=== PATIENT | female | born 1985 | race Caucasian/White ===

== ENCOUNTER → 2016-07-07 | Outpatient (CLI) | payer OTHER ==
--- NOTE | 2016-07-07 13:32 | MAMMOGRAPHY REPORT ---
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 She did not unde rgo biopsy of the mass. The patient notes no noticeable change clinically in the size of the lump. She reports a possible other lump in the right lower breast. COMPARISON: Comparison is made to exam dated: 03/28/2012 ultrasound. TECHNIQUE: Real-time targeted ultrasound of the right breast was performed. FINDINGS: Real-time, high-resolution targeted ultrasound was performed of the area of the previousl y seen mass. In the right breast at 11:30, 2 cm from the nipple, there is an oval hypoechoic circum scribed parallel mass which measures 1.3 x 1.5 x 0.7 cm. This is stable in size and appearance comp ared to the 2012 exam, where the mass measured 1.3 x 1.6 x 0.8 cm. Given the benign morphology and long-term stability, the mass is benign and likely represents a fibroadenoma. Targeted ultrasound was also performed of the area of the possible lump pointed out by the patient, centered in the right breast at 5:00 approximately 4 cm from the nipple. Sonographically normal tis steven is seen in this region, without evidence of a mass or other suspicious sonographic abnormality. IMPRESSION: ACR BI-RADS CATEGORY 2: BENIGN 1. Stable size of the 1.5 cm hypoechoic mass in the right breast at 11:30, stable dating back to at least the 03/28/2012 exam. Given the benign morphology and long-term stability, the mass is conside red benign and likely represents a fibroadenoma. Recommend clinical follow-up. 2. No suspicious sonographic abnormality at the site of the possible lump in the right breast at ap proximately 5:00 pointed out by the patient. Recommend clinical follow-up. There is no sonographic evidence of malignancy. The patient was verbally notified of the results. Kymberly Mayberry M.D. /:07/07/2016 09:05:45 Bureau Chief: Kymberly Mayberry MD, [facility] letter sent: Normal 1/2 BI-RADS Code: ACR BI-RADS Category 2: Benign
== END | disposition home or self-care (01) ==
LOC: C.MAMM 08:43
PROVIDERS: ATTEND Nurse Practitioner Adult Health
DX: N63 Unspecified lump in breast (principal)

== ENCOUNTER 2021-11-08 06:39 | Inpatient (IN) ==
[2021-11-08] MEDS ORDERED: OXYTOCIN 30 UNITS/500 ML BAG IV PRN ×2 (08:11)
[2021-11-08] MEDS ORDERED: ceFAZolin 2000MG 2,000 MG/15 ML SYR IV STA (08:23)
[2021-11-08] MEDS ORDERED: miSOPROStoL 25 MCG TAB PO ONE (08:52)
[2021-11-08] MEDS: LACTATED RINGER'S 1,000 ML IV PRN ×3 (08:53→20:06)
[2021-11-08 08:55] LABS: Hematocrit (blood only) 30.1 % (34.1-44.9); Hemoglobin 10.3 g/dl (12.0-16.0); Mean Corpuscular Hemoglobin 32.1 pg (25.0-34.0); Mean Corpuscular Hgb Conc 34.2 g/dL (32.0-36.0); Mean Corpuscular Volume 93.8 fL (80.0-100.0); Mean Platelet Volume 11.9 fL (9.4-12.3); Platelet Count 194 K/uL (130-400); RDW Coefficient of Variation 14.1 % (11.5-14.5); Red Blood Count 3.21 M/uL (3.93-5.22); White Blood Count 11.24 K/ul (4.8-10.8)
--- NOTE | 2021-11-08 08:55 | Labor Progress Brief Note ---
Date of Service November 08, 2021 Subjective Review of Systems All systems reviewed & are unremarkable except as noted in HPI & below Assessment & Plan (1) PROM (premature rupture of membranes): Plan: Prom at 3:15am today, onset of irregular nonpainful contractions since but no active labor. Cervix 1cm/50/-2. status reassuring. Discussed indication to induce labor and possible methods. Will start with PO Cytotec, and plan to progress to pitocin after Whitney score adequate. Order for pitocin in place to allow pharmacy profiling but it is not started until we reach the appopriate point in labor. (2) GBS (group B Streptococcus carrier), +RV culture, currently : Plan: PCN/Ancef allergies, and culture GBS+ with multiple drug resistance, hence Vancomycin ordered. (3) Close exposure to COVID-19 virus: Plan: Patient's had COVID with symptoms starting 10/25, home test positive 10/26 and PCR+ 10/27. He has recovered and is free of symptoms, plus he from her physically through his illness, and she tests negative here today on arrival - though they do both arrive together, wearing surgical masks. Discussed scenario with infectious disease control staff who advise that Marian and her can be managed as COVID negative at this time, although if Marian develops symptoms would upgrade to PUI and retest immediately. They are relieved and grateful to be able to labor and deliver together without special infection precautions. 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 Physical Exam Constitutional: WD/WN, vitals as above Eyes: PERRL, conjunctivae normal, anicteric sclerae ENMT: external ear and nose normal, oropharynx normal Neck: supple Respiratory: normal respiratory effort and able to speak in complete sente nces; no respiratory distress Cardiovascular: Rate/Rhythm: regular rate and regular rhythm Gastrointestinal (Abdomen): Gravid / AGA, nontender Musculoskeletal: no cyanosis or clubbing, extremities motor strength 5/5 Skin: no rashes, warm and dry Neurologic: patellar DTR's 2+ bilat, sensation intact Psychiatric: A+Ox3, euthymic affect Genitourinary: Speculum/Bimanual Exam: no vaginal lesions, no vaginal bleeding and uterus nontender OB Exam Abdomen: + vertex, + estimated weight (7) and + irregular contractions (rare and patient speaks easily through them) Manual OB Exam: + cervical dilation 1 cm, + cervical effacement 50%, + station - 2 and + amniotic fluid (Grossly ruptured) clear OB Exam Monitor Tracing: + external FHT monitor used, + external uterine monitor used and + category I Lymphatic: no cervical or axillary lymphadenopathy Results & Data ([facility]) Vital Signs (Past 12 Hours) Vital Signs Temp Pulse Resp BP 11/08/21 07:22 98.4 F 18 11/08/21 08:42 86 141/89 H 11/08/21 08:11 74 126/77 11/08/21 07:41 88 130/89 11/08/21 07:10 88 131/82 Laboratory Results Microbiology 10/25/21 Unknown Vaginal/Rectal Group B Streptococcus Culture - Final Group B Beta Strep Note: resistant to clinda and erythro, sensitive to vanco Coding Level of Care Code None Diagnoses PROM (premature rupture of membranes) O42.90 GBS (group B Streptococcus carrier), +RV culture, currently O99.820 Close exposure to COVID-19 virus Z20.822
[2021-11-08] MEDS ORDERED: VANCOMYCIN HCL 1,000 MG in SODIUM CHLORIDE 0.9% 250 ML IV STA (09:02)
[2021-11-08] MEDS ORDERED: miSOPROStoL 50 MCG TAB PO ONE (13:29)
--- NOTE | 2021-11-08 13:31 | Communication Note ---
Date of Service: November 08, 2021 S: Aware of but not in severe pain with contractions O: /-2 softer consistency, mid position. T Cat 1, [place] Q5 A: PROM @ 38w5d, IOL P: Redose cytotec, this time will give 50mcg PO
[2021-11-08] MEDS ORDERED: ceFAZolin 1000MG 1,000 MG/7.5 ML SYR IV PRN (15:00)
--- NOTE | 2021-11-08 17:47 | Communication Note ---
Date of Service: November 08, 2021 S: More uncomfortable with ctx O: //-1, Forebag ROM for scant clear fluid, FHT Cat 1, [place] Q3min A: PROM, IOL, GBS+ P: Continue IOL with pitocin moving forward from here; s/p 2 doses of cytotec and now Whitney adequate for pit. Epidural on request. Continue abx.
[2021-11-08] MEDS ORDERED: SODIUM CHLORIDE 0.9% INJ 10 ML VIAL ONE (18:58)
[2021-11-08] MEDS ORDERED: fentaNYL citrate 100 MCG/2 ML VIAL ONE (18:58)
[2021-11-08] MEDS ORDERED: ePHEDrine sulfate 50 MG/ML AMP ONE (18:58)
[2021-11-08] MEDS ORDERED: LIDOCAINE 2%/EPINEPHRINE 1:200,000 20 ML SDV ONE (18:59)
[2021-11-08] MEDS ORDERED: BUPIVACAINE 0.25% 30 ML VIAL ONE (18:59)
[2021-11-08] MEDS ORDERED: fentaNYL 2MCG/ML ROPIVACAINE 1.25MG/ML 100 ML BAG EPI ONE (18:59)
[2021-11-08] MEDS ORDERED: diphenhydrAMINE 50 MG/ML VIAL IV PRN (19:57)
[2021-11-08] MEDS ORDERED: NALOXONE HCL 0.4 MG/1 ML VIAL/CARP IV PRN (19:57)
[2021-11-08] MEDS ORDERED: ePHEDrine sulfate 50 MG/ML AMP IV PRN (19:57)
[2021-11-08] MEDS ORDERED: NALBUPHINE HCL INJ 10 MG/ML AMP IV PRN (19:57)
[2021-11-08] MEDS ORDERED: fentaNYL 2MCG/ML ROPIVACAINE 1.25MG/ML 100 ML BAG EPI PRN (19:57)
[2021-11-08] MEDS ORDERED: NALOXONE HCL 1 MG in SODIUM CHLORIDE 0.9% 1000ML 1,000 ML IV PRN (19:57)
[2021-11-08] MEDS ORDERED: ONDANSETRON INJ 2 MG/ML 2 ML VIAL IV PRN (19:57)
--- NOTE | 2021-11-08 19:57 | Anesthesiology Consultation ---
Date of Service November 08, 2021 Assessment & Plan ASA ASA2 Proposed Anesthesia Anesthesia Type: Labor Epidural Risk / Benefits Reviewed With: PT / POA / Parent / Guardian, Accepts Plan and Informed Consent Obtained History Height/Weight Height: 5 ft 4 in Weight: 94.347 kg Allergies Allergy/AdvReac Type Severity Reaction Status Date / Time cephalexin [From Keflex] Allergy Intermediate Hives Verified 11/08/21 09:47 Penicillins Allergy Intermediate Hives Verified 11/08/21 09:47 Medications Home Medications Medication Instructions Recorded Confirmed Last Taken prenat.vits,rory,[id number]-[id number] 1 tab PO DAILY 04/01/21 11/08/21 11/07/21 08:00 Active Medications Generic Name Dose Route Start Last Admin Trade Name Freq PRN Reason Stop Dose Admin Lactated Ringer's 1,000 mls @ 125 mls/hr 11/08/21 08:11 11/08/21 19:00 Lr IV 11/10/21 08:10 999 mls/hr .Q8H PRN Infusion L&D Protocol Protocol Oxytocin 30 units in 500 mls @ 5 mls/hr 11/08/21 08:11 11/08/21 19:00 Pitocin IV 11/10/21 08:10 0.3 units/hr .Q24H PRN 5 mls/hr Labor Induction/Augmentation Titration Protocol 0.3 UNITS/HR Past Medical History Medical History Breast mass Benign History of chicken pox History of HPV infection Migraine Exercise / Class Metabolic Activity II 4-5 Yardwork/Stairs/Walk up hill Past Family History Family History Father Hypertension Hyperlipidemia Mother Chronic fatigue syndrome Grandfather (Paternal) Lung cancer Grandfather (Maternal) Black lung Grandmother (Paternal) Autoimmune disease Grandmother (Maternal) Dementia Denies family history of Ovarian cancer Prostate cancer Heart disease Myocardial infarction Breast cancer Colorectal cancer Past Surgical History Surgical History H/O wisdom tooth extraction History of colposcopy Past Anesthesia History No Hx of Anesthesia Complications and No Family Hx of Anesthesia Complications History of PONV No Hx of PONV and No Hx of Motion Sickness Social History Smoking Status: Never smoker Do You Dip or Chew Tobacco: No Hx Alcohol Use: No Hx Substance Use: No Review of Systems denies fever/cough/ colds/ chest pain/ SOB/ JUANITO denies JUANITO Physical Exam Vital Signs Last Vital Signs Temp 37.1 C 11/08/21 19:00 Pulse 90 11/08/21 19:54 Resp 22 11/08/21 19:50 BP 139/79 11/08/21 19:53 Pulse Ox 97 11/08/21 19:54 ENMT Mouth: no TMJ abnormality and no dentition abnormality Thyromental Distance: > or= 3.5 Finger Breadths Mallampati Class: II Neck neck extension not limited Respiratory normal respiratory effort; no respiratory distress Auscultation: lungs clear to auscultation bilaterally Cardiovascular Rate/Rhythm: regular rate and regular rhythm Neurologic moves all extremities Psychiatric Orientation: alert and oriented x 3 Testing Laboratory Results 11/08/21 08:44 Blood Type O Positive 11/08/21 08:44 Antibody Screen NEGATIVE 11/08/21 08:44
[2021-11-08] MEDS ORDERED: VANCOMYCIN HCL 1,000 MG in SODIUM CHLORIDE 0.9% 250 ML IV PRN (20:00)
[2021-11-08] MEDS ORDERED: VANCOMYCIN HCL 1,000 MG in SODIUM CHLORIDE 0.9% 250 ML IV SCH (22:00)
--- NOTE | 2021-11-08 22:28 | Labor Progress Brief Note ---
Date of Service November 08, 2021 Subjective Comfortable with epidural, "I feel like a new woman" Assessment & Plan (1) PROM (premature rupture of membranes): Plan: Cervix exam per RN with recent bladder emptying was only 3cm; confirmed by this MD. Given the recurring decel with each contraction, was hoping to see her much further along. Discussed with patient some concern about PROM followed by slow progress, coupleting, continued high station of fetus, and deep dips of FHT with contractions this remote from delivery. Suspicion of CPD made clear to patient and FOB. At this time FHT variability is reassuring, and she is interested in vaginal delivery and wishes to continue attempt of IOL. RN Lizette in the room during exam and discussion. Will continue pitocin, reassess in a few hours. Admission and Anticipated Discharge Date Admission Date: November 08, 2021 Physical Exam Genitourinary: FHT 150 mod laureen, +acc +early vs variable decels with contractions Wanda Q3 now, but at times coupleting Pit @13 Cvx 3/90/-2 Fluid clear Results & Data ([facility]) Vital Signs (Past 12 Hours) Vital Signs Temp Pulse Resp BP Pulse Ox 11/08/21 19:00 98.8 F 18 11/08/21 22:19 86 98 11/08/21 22:14 88 100 11/08/21 22:09 82 95 11/08/21 22:08 78 134/83 11/08/21 22:04 80 96 11/08/21 21:59 74 96 11/08/21 21:54 76 128/67 99 11/08/21 21:49 69 97 11/08/21 21:44 74 97 11/08/21 21:35 18 11/08/21 21:35 98.6 F 18 11/08/21 21:39 75 96 11/08/21 21:38 71 106/57 L 11/08/21 21:34 74 96 11/08/21 21:29 83 93 11/08/21 21:24 67 94 11/08/21 21:23 97 H 115/64 11/08/21 21:19 85 93 11/08/21 21:17 80 90 11/08/21 21:14 70 94 11/08/21 21:09 74 122/66 95 11/08/21 21:04 89 95 11/08/21 21:02 84 89 L 11/08/21 20:59 77 95 11/08/21 20:54 91 H 116/71 98 11/08/21 20:49 77 97 11/08/21 20:44 101 H 96 11/08/21 20:39 72 116/71 97 11/08/21 20:34 84 98 11/08/21 20:31 79 93 11/08/21 20:29 80 95 11/08/21 20:15 16 11/08/21 20:15 16 11/08/21 20:24 98 11/08/21 20:24 77 11/08/21 20:24 73 128/74 11/08/21 20:19 89 96 11/08/21 20:16 83 94 11/08/21 20:14 90 96 11/08/21 20:09 83 97 11/08/21 20:07 80 139/75 11/08/21 20:04 85 96 11/08/21 20:02 88 139/75 11/08/21 19:59 90 94 11/08/21 20:00 92 H 18 147/82 H 11/08/21 19:57 81 137/74 11/08/21 19:55 18 11/08/21 19:55 80 18 139/78 11/08/21 19:54 90 97 11/08/21 19:53 89 139/79 11/08/21 19:52 85 147/78 H 11/08/21 19:49 78 99 11/08/21 19:50 76 22 162/82 H 11/08/21 19:48 91 H 166/92 H 11/08/21 19:46 68 180/97 H 11/08/21 19:44 80 100 11/08/21 19:39 79 100 11/08/21 19:34 84 98 11/08/21 19:29 75 98 11/08/21 19:24 77 98 11/08/21 19:25 78 141/89 H 11/08/21 19:19 64 100 11/08/21 19:14 77 99 11/08/21 18:56 73 152/90 H 11/08/21 18:40 75 140/94 11/08/21 18:25 69 141/91 H 11/08/21 18:11 71 142/89 H 11/08/21 17:45 18 0823/22 17:45 98.1 F 18 11/08/21 17:45 16 11/08/21 17:45 98.1 F 16 11/08/21 17:55 71 140/84 11/08/21 16:51 63 142/91 H 11/08/21 15:45 18 11/08/21 15:45 98.1 F 18 11/08/21 16:02 85 135/89 11/08/21 15:57 68 161/92 H 11/08/21 14:52 62 132/77 11/08/21 13:35 16 11/08/21 13:35 98.1 F 16 11/08/21 13:19 69 134/82 11/08/21 12:49 67 138/84 11/08/21 12:19 74 123/77 11/08/21 11:51 72 125/75 11/08/21 11:45 18 11/08/21 11:45 98.1 F 18 11/08/21 11:19 90 122/81 Coding Level of Care Code None Diagnoses PROM (premature rupture of membranes) O42.90
--- NOTE | 2021-11-09 00:22 | Labor Progress Brief Note ---
Date of Service November 09, 2021 Subjective Much more pressure in pelvis / low back with contractions Assessment & Plan (1) PROM (premature rupture of membranes): Plan: Significant progress! Will continue IOL. Plan keep pit @ 20 and reassess in a few hours, could add IUPC if not near complete by that time. Admission and Anticipated Discharge Date Admission Date: November 08, 2021 Physical Exam Genitourinary: +bloody show /-1 FHT 140 mod laureen +early dec +acc [place] Q2-3 Pit @ 20 Results & Data ([facility]) Vital Signs (Past 12 Hours) Vital Signs Temp Pulse Resp BP Pulse Ox 11/08/21 19:00 98.8 F 18 11/09/21 00:14 92 H 95 11/09/21 00:09 86 100 11/09/21 00:04 77 97 11/08/21 23:59 79 98 11/08/21 23:54 75 118/60 97 11/08/21 23:49 75 95 11/08/21 23:44 70 96 11/08/21 23:39 73 96 11/08/21 23:38 69 118/62 11/08/21 23:27 18 11/08/21 23:27 18 11/08/21 23:34 75 96 11/08/21 23:29 79 96 11/08/21 23:24 77 96 11/08/21 23:23 72 120/64 11/08/21 23:19 74 96 11/08/21 23:14 76 96 11/08/21 23:09 96 11/08/21 23:09 75 11/08/21 23:09 72 115/59 L 11/08/21 23:04 82 95 11/08/21 23:00 20 11/08/21 23:00 99.1 F 20 11/08/21 22:59 81 94 11/08/21 22:54 83 94 11/08/21 22:53 89 149/91 H 11/08/21 22:49 85 95 11/08/21 22:44 88 96 11/08/21 22:39 81 96 11/08/21 22:38 89 136/91 11/08/21 22:34 85 96 11/08/21 22:29 90 96 11/08/21 22:24 79 97 11/08/21 22:23 86 141/93 H 11/08/21 22:19 86 98 11/08/21 22:14 88 100 11/08/21 22:09 82 95 11/08/21 22:08 78 134/83 11/08/21 22:04 80 96 11/08/21 21:59 74 96 11/08/21 21:54 76 128/67 99 11/08/21 21:49 69 97 11/08/21 21:44 74 97 11/08/21 21:35 18 11/08/21 21:35 98.6 F 18 11/08/21 21:39 75 96 11/08/21 21:38 71 106/57 L 11/08/21 21:34 74 96 11/08/21 21:29 83 93 11/08/21 21:24 67 94 11/08/21 21:23 97 H 115/64 11/08/21 21:19 85 93 11/08/21 21:17 80 90 11/08/21 21:14 70 94 11/08/21 21:09 74 122/66 95 11/08/21 21:04 89 95 11/08/21 21:02 84 89 L 11/08/21 20:59 77 95 11/08/21 20:54 91 H 116/71 98 11/08/21 20:49 77 97 11/08/21 20:44 101 H 96 11/08/21 20:39 72 116/71 97 11/08/21 20:34 84 98 11/08/21 20:31 79 93 11/08/21 20:29 80 95 11/08/21 20:15 16 11/08/21 20:15 16 11/08/21 20:24 98 11/08/21 20:24 77 11/08/21 20:24 73 128/74 11/08/21 20:19 89 96 11/08/21 20:16 83 94 11/08/21 20:14 90 96 11/08/21 20:09 83 97 11/08/21 20:07 80 139/75 11/08/21 20:04 85 96 11/08/21 20:02 88 139/75 11/08/21 19:59 90 94 11/08/21 20:00 92 H 18 147/82 H 11/08/21 19:57 81 137/74 11/08/21 19:55 18 11/08/21 19:55 80 18 139/78 11/08/21 19:54 90 97 11/08/21 19:53 89 139/79 11/08/21 19:52 85 147/78 H 11/08/21 19:49 78 99 11/08/21 19:50 76 22 162/82 H 11/08/21 19:48 91 H 166/92 H 11/08/21 19:46 68 180/97 H 11/08/21 19:44 80 100 11/08/21 19:39 79 100 11/08/21 19:34 84 98 11/08/21 19:29 75 98 11/08/21 19:24 77 98 11/08/21 19:25 78 141/89 H 11/08/21 19:19 64 100 11/08/21 19:14 77 99 11/08/21 18:56 73 152/90 H 11/08/21 18:40 75 140/94 11/08/21 18:25 69 141/91 H 11/08/21 18:11 71 142/89 H 11/08/21 17:45 18 11/08/21 17:45 98.1 F 18 11/08/21 17:45 16 11/08/21 17:45 98.1 F 16 11/08/21 17:55 71 140/84 11/08/21 16:51 63 142/91 H 11/08/21 15:45 18 11/08/21 15:45 98.1 F 18 11/08/21 16:02 85 135/89 11/08/21 15:57 68 161/92 H 11/08/21 14:52 62 132/77 11/08/21 13:35 16 11/08/21 13:35 98.1 F 16 11/08/21 13:19 69 134/82 11/08/21 12:49 67 138/84 Coding Level of Care Code None Diagnoses PROM (premature rupture of membranes) O42.90
[2021-11-09] MEDS ORDERED: LIDOCAINE 2%/EPINEPHRINE 1:200,000 20 ML SDV ONE (00:58)
[2021-11-09] MEDS ORDERED: fentaNYL citrate 100 MCG/2 ML VIAL ONE (00:58)
--- NOTE | 2021-11-09 01:09 | Communication Note ---
Date of Service: November 09, 2021 asked to reevaluate patient. baby is OP. pt with significant back pain. redosed with 100 mcg fentanyl and 5mL 2% Lidocaine with epi. vss throughout
[2021-11-09] MEDS: LACTATED RINGER'S 1,000 ML IV PRN (03:00)
--- NOTE | 2021-11-09 05:28 | Delivery Summary ---
Vaginal Delivery Summary Date of Service November 09, 2021 Vaginal Delivery Summary DIAGNOSES: 1. Stanton intrauterine at 38w6d gestation. 2. PROM, IOL. 3. Group B Streptococcus Pos, treated with Vancomycin PROCEDURE: Spontaneous vaginal delivery and repair of 1st degree posterior vaginal laceration. SURGEON: Марина Hanks MD. HOME INSURANCE AGENT: None. ESTIMATED BLOOD LOSS: 300 mL. COMPLICATIONS: None. PLACENTA: Spontaneous and intact with a 3-vessel cord. DISPOSITION: Stable to labor and delivery. DESCRIPTION: The patient pushed well and brought the head to in DOA position, though asynclitism was present based on eccentric scalp swelling. The infant's head was allowed to deliver with contraction force and no further active pushing, with the perineum protected during this time. There was 1x nuchal cord reduced at the perineum. The left shoulder was anterior. Due to a "turtle sign" a stool was called for and the patient was assisted by Melvi and Lizette to bring her knees well back into Maryanne position. With the next push, the shoulders and body delivered without any difficulty, and the was placed on the maternal abdomen. It was vigorous and moving all extremities, and making respiratory efforts. The cord was doubly clamped by the MD and then cut by the FOB. The placenta delivered spontaneously and was noted to be intact and with a 3VC, though the cord was thin, and only minimal cord blood was able to be obtained. The cervix, vagina and perineum were examined and were found to have a shallow posterior vaginal abrasion, which was repaired with running locked 3-0 vicryl suture. The fundus was firm and lochia minimal immediately after delivery. [facility] Vaginal Delivery Charge Vaginal Delivery Codes: 38977 global code for the antepartum, delivery, and post-
[2021-11-09] MEDS ORDERED: oxyCODONE/ACETAMINOPHEN 5mg/325mg TAB PO PRN (05:31)
[2021-11-09] MEDS ORDERED: DIPHTHERIA/TETANUS/PERTUSSIS 0.5 ML SYR/VIAL IM ONE (05:31)
[2021-11-09] MEDS ORDERED: HYDROCORTISONE ACETATE 25 MG SUPP PR PRN (05:31)
[2021-11-09] MEDS ORDERED: ACETAMINOPHEN 325 MG TAB PO PRN (05:31)
[2021-11-09] MEDS ORDERED: BENZOCAINE 20% AER SPR 82.5 GM CAN EXT PRN (05:31)
[2021-11-09] MEDS: IBUPROFEN 600 MG TAB PO PRN ×3 (06:25→18:26)
--- NOTE | 2021-11-09 07:16 | Anesthesia Procedure Note ---
Date of Service November 09, 2021 Anesthesia Post Epidural Note Vital Signs Vital Signs: Temp Pulse Resp BP Pulse Ox 37.3 C 86 18 134/69 95 11/09/21 07:07 11/09/21 07:06 11/09/21 06:51 11/09/21 07:06 11/09/21 05:19 Pain Intensity Lower Abdomen: Pain Intensity: 1 Notes Mental Status: alert / awake / arousable and participated in evaluation Nausea / Vomiting: adequately controlled Pain: adequately controlled Airway Patency, RR, SpO2: stable & adequate BP & HR: stable & adequate Hydration State: stable & adequate Neuraxial Anesthesia: was administered and sensory block is resolving Anesthetic Complications: no major complications apparent and Pt Satisfied with anesthetic care Epidural: Removed without complications and With tip intact
[2021-11-09] MEDS: DOCUSATE SODIUM 100 MG CAP PO SCH ×2 (07:48→19:46)
[2021-11-09] MEDS: PRENATAL VITAMIN 1 TAB PO SCH (07:48)
--- NOTE | 2021-11-10 06:57 | Obstetrical Progress Note ---
Date of Service November 10, 2021 Assessment & Plan (1) PROM (premature rupture of membranes): Plan doing well, cont current care Subjective Constitutional: + as per Subjective / HPI Physical Exam Constitutional WD/WN, vitals as above well developed and well nourished Respiratory normal respiratory effort, lungs clear to auscultation normal respiratory effort Cardiovascular RRR, no murmur, no edema Gastrointestinal (Abdomen) normal bowel sounds, soft, nontender, no hepatosplenomegaly Results & Data ([facility]) Vital Signs (Past 12 Hours) Vital Signs Temp Pulse Resp BP Pulse Ox O2 Del Method 11/10/21 03:15 97.9 F 80 16 121/80 97 Room Air 11/09/21 23:30 98.1 F 90 18 122/79 97 Room Air 11/09/21 19:30 97.7 F 83 18 134/87 98 Room Air
[2021-11-10] MEDS: DOCUSATE SODIUM 100 MG CAP PO SCH ×2 (07:28→20:52)
[2021-11-10] MEDS: IBUPROFEN 600 MG TAB PO PRN ×2 (07:28→19:33)
[2021-11-10] MEDS: PRENATAL VITAMIN 1 TAB PO SCH (07:28)
[2021-11-10 10:38] LABS: Hematocrit (blood only) 24.9 % (34.1-44.9); Hemoglobin 8.4 g/dl (12.0-16.0); Mean Corpuscular Hemoglobin 32.6 pg (25.0-34.0); Mean Corpuscular Hgb Conc 33.7 g/dL (32.0-36.0); Mean Corpuscular Volume 96.5 fL (80.0-100.0); Mean Platelet Volume 12.1 fL (9.4-12.3); Platelet Count 147 K/uL (130-400); RDW Coefficient of Variation 14.6 % (11.5-14.5); RDW Standard Deviation 51.5 fL (36.4-46.3); Red Blood Count 2.58 M/uL (3.93-5.22); White Blood Count 12.92 K/ul (4.8-10.8)
[2021-11-11 06:30] LABS: Hemoglobin 8.4 g/dl (12.0-16.0)
--- NOTE | 2021-11-11 07:42 | Obstetrical Progress Note ---
Date of Service November 11, 2021 Assessment & Plan (1) Vaginal delivery: (2) GBS (group B Streptococcus carrier), +RV culture, currently : Plan Doing well. Plan d/c today. Instructions reviewed. Day #:: 2 Subjective Ambulation: ambulating normally Voiding: no voiding problems Passing Gas:: Yes Diet Tolerance:: regular diet Lochia:: Small Feeding Type:: breast feeding Feels well today. Desires d/c. Physical Exam Constitutional WD/WN, vitals as above Cardiovascular Extremities: + edema (tr); no calf tenderness Gastrointestinal (Abdomen) soft, nt, nd ff/nt at u Results & Data ([facility]) Vital Signs (Past 12 Hours) Vital Signs Temp Pulse Resp BP 11/10/21 23:00 36.8 C 72 18 130/80
[2021-11-11] MEDS: PRENATAL VITAMIN 1 TAB PO SCH (08:39)
[2021-11-11] MEDS: IBUPROFEN 600 MG TAB PO PRN ×2 (08:39→12:43)
[2021-11-11] MEDS: DOCUSATE SODIUM 100 MG CAP PO SCH (08:39)
== END 2021-11-11 13:25 | disposition home or self-care (01) | DRG 807 ==
LOC: OPB 06:39 → 4S1 06:43 → 4E2 11-09 09:44

== ENCOUNTER 2023-09-22 23:15 | Inpatient (IN) ==
[2023-09-22] MEDS ORDERED: LIDOCAINE 1% LOCAL 20 ML VIAL INFIL PRN (23:56)
[2023-09-23] MEDS: LACTATED RINGER'S 1,000 ML IV PRN (00:05)
[2023-09-23 00:25] LABS: Hematocrit (blood only) 31.1 % (37.0-47.0); Hemoglobin 10.3 g/dl (12.0-16.0); Mean Corpuscular Hemoglobin 31.1 pg (25.0-34.0); Mean Corpuscular Hgb Conc 33.1 g/dL (32.0-36.0); Mean Platelet Volume 12.2 fL (9.4-12.4); Platelet Count 159 K/uL (130-400); RDW Standard Deviation 47.9 fL (36.4-46.3); Red Blood Count 3.31 M/uL (4.20-5.40); White Blood Count 12.38 K/ul (4.8-10.8)
[2023-09-23] MEDS ORDERED: fentaNYL citrate PF 100 MCG/2 ML VIAL EPI PRN (00:30)
[2023-09-23] MEDS ORDERED: ePHEDrine sulfate 50 MG/ML AMP IV PRN (00:30)
[2023-09-23] MEDS ORDERED: ROPIVACAINE 0.5% PF 5 MG/ML 20 ML VIAL EPI PRN (00:30)
[2023-09-23] MEDS ORDERED: SODIUM CHLORIDE 0.9% PF INJ 10 ML VIAL EPI PRN (00:30)
[2023-09-23] MEDS ORDERED: diphenhydrAMINE 50 MG/ML VIAL IV PRN (00:30)
[2023-09-23] MEDS ORDERED: BUPIVACAINE 0.25% PF 30 ML VIAL EPI PRN (00:30)
[2023-09-23] MEDS ORDERED: LIDOCAINE 2% MPF LOCAL 5 ML VIAL EPI PRN (00:30)
[2023-09-23] MEDS ORDERED: NALOXONE HCL 1 MG in SODIUM CHLORIDE 0.9% 1,000 ML IV PRN (00:30)
[2023-09-23] MEDS ORDERED: NALBUPHINE HCL 5 MG in SYRINGE 0 ML IV PRN (00:30)
[2023-09-23] MEDS ORDERED: NALOXONE HCL 0.4 MG/1 ML VIAL/CARP IV PRN (00:30)
--- NOTE | 2023-09-23 00:30 | Anesthesiology Consultation ---
Date of Service September 23, 2023 Assessment & Plan (1) Encounter for pre-operative examination: Chart Review Chart Review: Patient NOT seen in Pre Admission Testing and Acceptable Risk for Labor Epidural Consults Requested none History Height/Weight Height: 5 ft 4 in Weight: 98.883 kg Allergies Allergy/AdvReac Type Severity Reaction Status Date / Time cephalexin [From Keflex] Allergy Intermediate Hives Verified 09/22/23 23:34 Penicillins Allergy Intermediate Hives Verified 09/22/23 23:34 Medications Home Medications Medication Instructions Recorded Confirmed Last Taken prenat.vits,rory,auo-amjk-udmav 1 tab PO DAILY 04/01/21 09/22/23 09/22/23 sumatriptan succinate 100 mg 100 mg PO Q2H PRN migraine 11/03/22 09/22/23 Unknown tablet (Imitrex) headache #10 tabs Active Medications Generic Name Dose Route Start Last Admin Trade Name Freq PRN Reason Stop Dose Admin Lactated Ringer's 1,000 mls @ 125 mls/hr 09/22/23 23:56 09/23/23 00:05 Lr IV 09/24/23 23:55 999 mls/hr .Q8H PRN Administration L&D Protocol Protocol Past Medical History Medical History History of chicken pox History of HPV infection Breast mass Benign Migraine Past Family History Family History Father Hypertension Hyperlipidemia Mother Chronic fatigue syndrome Grandfather (Paternal) Lung cancer Grandfather (Maternal) Black lung Grandmother (Paternal) Autoimmune disease Grandmother (Maternal) Dementia Denies family history of Ovarian cancer Prostate cancer Heart disease Myocardial infarction Breast cancer Colorectal cancer Past Surgical History Surgical History History of colposcopy H/O wisdom tooth extraction Social History Smoking Status: Never smoker Do You Dip or Chew Tobacco: No Hx Alcohol Use: No Hx Substance Use: No Physical Exam Vital Signs Last Vital Signs Temp 98.1 F 09/22/23 23:41 Pulse 81 09/22/23 23:48 Resp 18 09/22/23 23:41 BP 154/92 H 09/22/23 23:48 O2 Del Method Room Air 09/22/23 23:35 Testing Laboratory Results 09/23/23 00:07
[2023-09-23] MEDS: VANCOMYCIN HCL 1,000 MG in SODIUM CHLORIDE 0.9% 250 ML IV STA (00:36)
[2023-09-23] MEDS: fentANYL 2 MCG/ML BUPIVacaine 0.125%-NSS 100ML BAG EPI PRN (01:02)
[2023-09-23] MEDS: BUPIVACAINE 0.25% PF 30 ML VIAL EPI STA (01:03)
[2023-09-23] MEDS: LIDOCAINE 2%/EPINEPHRINE 1:200,000 20 ML PF EPI STA (01:06)
[2023-09-23] MEDS: BUPIVACAINE 0.25% PF 30 ML VIAL ONE (01:19)
[2023-09-23] MEDS: SODIUM CHLORIDE 0.9% PF INJ 10 ML VIAL ONE (01:20)
[2023-09-23] MEDS: fentANYL 2 MCG/ML BUPIVacaine 0.125%-NSS 100ML BAG ONE (01:20)
[2023-09-23] MEDS: LIDOCAINE 2%/EPINEPHRINE 1:200,000 20 ML PF ONE (01:20)
[2023-09-23] MEDS: fentaNYL citrate PF 100 MCG/2 ML VIAL ONE (01:20)
[2023-09-23] MEDS: ePHEDrine sulfate 50 MG/ML AMP ONE (01:20)
[2023-09-23] MEDS: SODIUM CHLORIDE 0.9% PF INJ 10 ML VIAL EPI STA (01:22)
[2023-09-23] MEDS: fentaNYL citrate PF 100 MCG/2 ML VIAL EPI STA (01:22)
[2023-09-23] MEDS: OXYTOCIN 30 UNITS/NSS 30 UNITS/500 ML BAG IV PRN ×2 (03:48→05:52)
--- NOTE | 2023-09-23 03:58 | Delivery Summary ---
Vaginal Delivery Summary Date of Service September 23, 2023 Vaginal Delivery Summary and 1st Degree LAC Patient arrived in active labor second baby group B strep positive with allergies to penicillin and Keflex was thus given vancomycin she arrived at 4- 1/2 cm requested epidural and then spontaneously progress to fully dilated then pushing over a total of 1 contraction delivering a baby in occiput anterior position fluid was clear there was no nuchal cord gentle traction on the baby w ith maternal expulsive efforts resulted in easy delivery no excessive force live vigorous male infant Cord clamped and cut cord blood obtained placenta removed with traction IV Pitocin started a very small laceration was repaired with a [id number] suture in the posterior fourchette first-degree tear Quantitative blood loss 401 sponge and instrument counts were correct Blood pressures were mildly elevated during active labor we will watch carefully [facility] Vaginal Delivery Charge Delivery Type Details: and 1st Degree LAC
[2023-09-23] MEDS ORDERED: HYDROCORTISONE ACETATE 25 MG SUPP PR PRN (04:56)
[2023-09-23] MEDS ORDERED: bisacodyL 10 MG SUPP PR PRN (04:56)
[2023-09-23] MEDS ORDERED: BENZOCAINE 20% SPRY 85 APPLN/85 GM CAN EXT PRN (04:56)
[2023-09-23] MEDS ORDERED: oxyCODONE/ACETAMINOPHEN 5mg/325mg TAB PO PRN (04:56)
[2023-09-23] MEDS: DIPHTHER/TETAN/PERTUS Vaccine (Tdap, Adol/Adult) 0.5mL IM ONE (05:48)
[2023-09-23] MEDS: IBUPROFEN 600 MG TAB PO PRN ×2 (05:52→11:48)
--- NOTE | 2023-09-23 07:48 | Anesthesia Procedure Note ---
Date of Service September 23, 2023 Anesthesia Post Epidural Note Vital Signs Vital Signs: Temp Pulse Resp BP Pulse Ox O2 Del Method 37.0 C 73 18 121/74 98 Room Air 09/23/23 03:30 09/23/23 07:40 09/23/23 06:00 09/23/23 07:40 09/23/23 04:07 09/22/23 23:35 Pain Intensity Bilateral Abdomen: Pain Intensity: 4 Notes Mental Status: alert / awake / arousable and participated in evaluation Nausea / Vomiting: adequately controlled Pain: adequately controlled Airway Patency, RR, SpO2: stable & adequate BP & HR: stable & adequate Hydration State: stable & adequate Neuraxial Anesthesia: was administered and sensory block is resolving Anesthetic Complications: no major complications apparent and Pt Satisfied with anesthetic care Epidural: Removed without complications and With tip intact
[2023-09-23] MEDS: DOCUSATE SODIUM 100 MG CAP PO SCH (09:24)
[2023-09-23] MEDS: PRENATAL VITAMIN 1 TAB PO SCH (09:25)
[2023-09-23] MEDS ORDERED: SODIUM CHLORIDE 0.9% 250 ML IV PRN (11:16)
[2023-09-23] MEDS: ACETAMINOPHEN 325 MG TAB PO PRN (14:41)
[2023-09-24 06:21] LABS: Hemoglobin 8.7 g/dl (12.0-16.0); Mean Corpuscular Hemoglobin 31.8 pg (25.0-34.0); Mean Corpuscular Hgb Conc 33.5 g/dL (32.0-36.0); Mean Corpuscular Volume 94.9 fL (80.0-100.0); Mean Platelet Volume 12.1 fL (9.4-12.4); Platelet Count 147 K/uL (130-400); RDW Coefficient of Variation 14.2 % (11.5-14.5); RDW Standard Deviation 47.8 fL (36.4-46.3); Red Blood Count 2.74 M/uL (4.20-5.40); White Blood Count 11.53 K/ul (4.8-10.8)
--- NOTE | 2023-09-24 07:30 | Obstetrical Progress Note ---
Date of Service September 24, 2023 Assessment & Plan (1) Encounter for pre-operative examination: day #1 patient is doing well she is breast-feeding has minimal bleeding she has no extremity pain at this stage she would like to go home later in the day this sounds reasonable she meets discharge criteria Subjective Ambulation: ambulating normally Voiding: no voiding problems Passing Gas:: Yes Diet Tolerance:: regular diet Lochia:: Small Feeding Type:: breast feeding Current Pain Level(1-10): 0 Physical Exam Constitutional WD/WN, vitals as above well developed and well nourished Respiratory normal respiratory effort, lungs clear to auscultation normal respiratory effort Cardiovascular RRR, no murmur, no edema Gastrointestinal (Abdomen) normal bowel sounds, soft, nontender, no hepatosplenomegaly Results & Data Vital Signs (Past 12 Hours) Vital Signs Temp Pulse Resp BP O2 Del Method 09/24/23 03:40 97.7 F 80 14 134/86 Room Air 09/23/23 23:45 98.2 F 84 16 147/92 H Room Air 09/23/23 20:08 97.9 F 87 16 148/96 H Room Air
[2023-09-24] MEDS ORDERED: bisacodyL 5 MG TABEC PO SCH (20:00)
== END 2023-09-24 14:54 | disposition home or self-care (01) | DRG 807 ==
LOC: OPB 23:15 → 4S1 23:18 → 4E2 09-23 09:40